=== PATIENT | female | born 1955 | race Caucasian/White ===

== ENCOUNTER 2016-09-20 15:57 | Emergency (ER) | payer OTHER ==
[~2016-09-20] VITALS: Ht 162.6 cm; Wt 70.0 kg
[2016-09-20 16:25] VITALS: BP 140/66; PULSE 62; RESP 16; TEMP 97.7; O2SAT 99
[2016-09-20] MEDS ORDERED: OMEP20TA PO (16:29)
[2016-09-20] MEDS ORDERED: PROZ40CA PO (16:29)
[2016-09-20] MEDS ORDERED: SODIUM CHLOR 0.9% 1000 ML INJ 1,000 ML IV SCH (16:42)
[2016-09-20 16:45] VITALS: RESP 16; O2SAT 99
[2016-09-20 16:50] VITALS: BP_SYST 104; BP_SYST 124; BP_SYST 97; BP_DIAS 66; BP_DIAS 67; BP_DIAS 70; RESP 16
[2016-09-20 17:21] LABS: AUTOMATED NEUTROPHIL # 4.5 TH/MM3 (1.8-7.7); BASOPHIL # 0.1 TH/MM3 (0-0.2); BASOPHIL % 0.6 % (0.0-2.0); EOSINOPHIL # 0.2 TH/MM3 (0-0.4); EOSINOPHIL % 2.4 % (0.0-4.0); HEMATOCRIT 35.4 % (35.0-46.0); HEMO FLAGS DIFF FINAL; LYMPH % 32.8 % (9.0-44.0); LYMPHOCYTE # 2.6 TH/MM3 (1.0-4.8); MEAN CELL VOLUME 89.1 FL (80.0-100.0); MEAN CORPUSCULAR HEMOGLOBIN 29.2 PG (27.0-34.0); MEAN CORPUSCULAR HGB CONC 32.7 % (32.0-36.0); MONO % 7.9 % (0.0-8.0); NEUT % 56.3 % (16.0-70.0); PLATELET COUNT 253 TH/MM3 (150-450); RED BLOOD COUNT 3.97 MIL/MM3 (4.00-5.30); RED CELL DISTRIBUTION WIDTH 13.6 % (11.6-17.2); WHITE BLOOD COUNT 7.9 TH/MM3 (4.0-11.0)
[2016-09-20 17:52] LABS: ANION GAP 8 MEQ/L (5-15); BICARBONATE 26.6 MEQ/L (21.0-32.0); BLOOD UREA NITROGEN 15 MG/DL (7-18); CHLORIDE 106 MEQ/L (98-107); GLOMERULAR FILTRATION RATE 54 ML/MIN (>89); MAGNESIUM 2.3 MG/DL (1.5-2.5); POTASSIUM 3.8 MEQ/L (3.5-5.1); SODIUM (NA) 141 MEQ/L (136-145)
--- NOTE | 2016-09-20 18:00 | PD ---
HPI Chief Complaint: Syncope/Near-Syncope Time Seen by Provider: 17:57 Travel History International Travel<30 days: No Contact w/Intl Traveler<30days: No Traveled to known affect area: No History of Present Illness HPI 61-year-old female that presents to the ED for evaluation of possible syncopal episode. Per patient today she donated blood around noon. Per patient she ate and then she went to work and doing her work she started feeling that she was given a passout. Per patient she put her head on her knees and she states that she woke up on the floor. Per patient she did not hit her head or lose consciousness per she remembers most of what happened. She denies taking any blood thinners. No head injury. No back or neck pain. Per patient she still feels somewhat lightheaded but otherwise denies any other illness. Denies any cuts. No fevers chills or sweats. States that she has had an episode like this before about 10 years ago when she also donated blood last time she had it almost immediately after donating blood. Per patient she doesn't believe that they took more than a needed. She does have an allergy to amoxicillin. She denies any history of heart disease. She does have a history of depression and anxiety. [facility] Past Medical History Anxiety: Yes Depression: Yes Cardiovascular Problems: Yes Diminished Hearing: No Gastrointestinal Disorders: Yes GERD: Yes Tetanus Vaccination: > 5 Years Influenza Vaccination: Yes ?: Not Past Surgical History Tonsillectomy: Yes Social History Alcohol Use: Yes (OCASSIONALLY) Tobacco Use: No (PT DENIES ) Substance Use: No (PT DENIES ) Allergies-Medications (Allergen,Severity, Reaction): Coded Allergies: Amoxicillin (Verified Allergy, Severe, hives, 09/20/16) Reported Meds & Prescriptions Reported Meds & Active Scripts Active Reported Omeprazole 20 Mg Tab 20 Mg PO DAILY Prozac (Fluoxetine HCl) 40 Mg Cap 40 Mg PO DAILY Review of Systems Except as stated in HPI: all other systems reviewed are Neg Physical Exam Narrative GENERAL: SKIN: Warm and dry. HEAD: Atraumatic. Normocephalic. EYES: Pupils equal and round 4 mm reactive and accommodation. No scleral icterus. No injection or drainage. ENT: No nasal bleeding or discharge. Mucous membranes pink and moist. Tongue is midline. No uvula deviation. NECK: Trachea midline. No JVD. CARDIOVASCULAR: Regular rate and rhythm. No murmurs, S3, S4. RESPIRATORY: No accessory muscle use. Clear to auscultation. Breath sounds equal bilaterally. GASTROINTESTINAL: Abdomen soft, non-tender, nondistended. Hepatic and splenic margins not palpable. MUSCULOSKELETAL: Extremities without clubbing, cyanosis, or edema. No obvious deformities. Full range of motion of the upper and lower extremities bilaterally. 2+ pulses bilaterally. Romberg test negative. Pronator test negative. NEUROLOGICAL: Awake and alert. No obvious cranial nerve deficits. Motor grossly within normal limits. Five out of 5 muscle strength in the arms and legs. Normal speech. PSYCHIATRIC: Appropriate mood and affect; insight and judgment normal. Data Data Last Documented VS Vital Signs Date Time Temp Pulse Resp B/P Pulse Ox O2 Delivery O2 Flow Rate FiO2 09/20/16 19:07 62 20 140/71 99 Room Air 09/20/16 18:12 97.8 Orders Electrocardiogram (09/20/16 16:41) Complete Blood Count With Diff (09/20/16 16:41) Basic Metabolic Panel (Bmp) (09/20/16 16:41) Troponin I (09/20/16 16:41) Magnesium (Mg) (09/20/16 16:41) Ecg Monitoring (09/20/16 16:41) Oximetry (09/20/16 16:41) Orthostatic Vital Signs (09/20/16 16:41) Sodium Chlor 0.9% 1000 Ml Inj (Ns 1000 M (09/20/16 16:42) Ct Brain W/O Iv Contrast(Rout) (09/20/16 ) Labs Laboratory Tests Test 09/20/16 16:40 White Blood Count 7.9 TH/MM3 Red Blood Count 3.97 MIL/MM3 Hemoglobin 11.6 GM/DL Hematocrit 35.4 % Mean Corpuscular Volume 89.1 FL Mean Corpuscular Hemoglobin 29.2 PG Mean Corpuscular Hemoglobin 32.7 % Concent Red Cell Distribution Width 13.6 % Platelet Count 253 TH/MM3 Mean Platelet Volume 7.4 FL Neutrophils (%) (Auto) 56.3 % Lymphocytes (%) (Auto) 32.8 % Monocytes (%) (Auto) 7.9 % Eosinophils (%) (Auto) 2.4 % Basophils (%) (Auto) 0.6 % Neutrophils # (Auto) 4.5 TH/MM3 Lymphocytes # (Auto) 2.6 TH/MM3 Monocytes # (Auto) 0.6 TH/MM3 Eosinophils # (Auto) 0.2 TH/MM3 Basophils # (Auto) 0.1 TH/MM3 CBC Comment DIFF FINAL Differential Comment Sodium Level 141 MEQ/L Potassium Level 3.8 MEQ/L Chloride Level 106 MEQ/L Carbon Dioxide Level 26.6 MEQ/L Anion Gap 8 MEQ/L Blood Urea Nitrogen 15 MG/DL Creatinine 1.04 MG/DL Estimat Glomerular Filtration 54 ML/MIN Rate Random Glucose 113 MG/DL Calcium Level 8.3 MG/DL Magnesium Level 2.3 MG/DL Troponin I LESS THAN 0.02 NG/ML MDM Medical Decision Making Medical Screen Exam Complete: Yes Emergency Medical Condition: Yes Medical Record Reviewed: Yes Interpretation(s) CBC & BMP Diagram 09/20/16 16:[address] head negative EKG shows sinus rhythm with no sign of acute ischemia or arrhythmia. Read by me and attending. Differential Diagnosis Orthostatic hypotension versus dizziness versus lightheadedness versus syncope versus presyncope Narrative Course 61-year-old female that presents to the ED for evaluation of syncope. Patient was properly examined and was found to have signs and symptoms consistent with appears to be likely benign syncope. This time labs and imaging were done. Blood work and orthostatics were ordered. Labs and imaging were essentially unremarkable. Patient was reassured. Patient feels improved. Patient denies any medical issues at this time. This time I believe this is likely related to dehydration and blood removal. This time I recommend close follow-up with PCP. See ED for worsening symptoms. Drink plenty of fluids and close follow-up with PCP. Patient and family agree with plan. See ED if worsening symptoms. Case was discussed in my attending who is in agreement with plan and was made aware of all findings. Diagnosis Primary Impression: Pre-syncope Patient Instructions: General Instructions Additional Instructions: Drink plenty of Fluids. Follow with PCP. See ED worsening symptoms. Med/Other Pt SpecificInfo: No Change to Meds Disposition: 01 DISCHARGE HOME Condition: Stable Joe Cuellar Sep 20, 2016 18:00
[2016-09-20 18:12] VITALS: BP 131/73; PULSE 64; RESP 16; TEMP 97.8; O2SAT 98
[2016-09-20 19:07] VITALS: BP 140/71; PULSE 62; RESP 20; O2SAT 99
--- NOTE | 2016-09-20 20:47 | RADRPT ---
EXAM DATE/TIME: 09/20/2016 19:52 [facility] COMPARISON: No previous studies available for comparison. INDICATIONS : Syncopal episode. RADIATION DOSE: 33.03 CTDIvol (mGy) MEDICAL HISTORY : Cardiovascular disease. SURGICAL HISTORY : None. ENCOUNTER: Initial ACUITY: 1 day PAIN SCALE: 0/10 LOCATION: cranial TECHNIQUE: Multiple contiguous axial images were obtained of the head. Using automated exposure control and adj ustment of the mA and/or kV according to patient size, radiation dose was kept as low as reasonably a chievable to obtain optimal diagnostic quality images. DICOM format image data is available electro nically for review and comparison. FINDINGS: CEREBRUM: The ventricles are normal for age. No evidence of midline shift, mass lesion, hemorrhage or acute in farction. No extra-axial fluid collections are seen. POSTERIOR FOSSA: The cerebellum and brainstem are intact. The 4th ventricle is midline. The cerebellopontine angle i s unremarkable. EXTRACRANIAL: The visualized portion of the orbits is intact. SKULL: The calvaria is intact. No evidence of skull fracture. CONCLUSION: Normal examination for a patient of this age. Josiah Bardales MD on September 20, 2016 at 20:43 Board Certified Radiologist. This report was verified electronically.
--- NOTE | 2016-09-20 21:55 | EKG ---
Date Performed: 09/20/2016 Time Performed: 16:48:58 PTAGE: 61 years EKG: Sinus rhythm POSSIBLE RIGHT VENTRICULAR CONDUCTION DELAY BORDERLINE ECG INTERPRETATION BASED ON A DEFAULT AGE OF 40 YEARS No prior electrocardiogram available for comparison. DOCTOR: Nir Berger Interpretating Date/Time 09/20/2016 21:54:27
== END 2016-09-20 20:57 | disposition home or self-care (01) ==
LOC: NEPE 15:57
DX: R55 Syncope and collapse (principal); F41.9 Anxiety disorder, unspecified; F32.9 Major depressive disorder, single episode, unspecified; K21.9 Gastro-esophageal reflux disease without esophagitis; Z79.899 Other long term (current) drug therapy; Z88.0 Allergy status to penicillin
CPT/HCPCS: 70450; 80048; 83735; 84484; 85025; 93005; 96360; 99285; J7030